=== PATIENT | female | born 1965 | race American Indian/Alaskan Native ===

== ENCOUNTER 2019-06-16 13:47 | Emergency (ER) | payer MEDICARE, OTHER ==
[2019-06-16 15:06] VITALS: BP 114/82
[2019-06-16] MEDS ORDERED: IBUPROFEN 800 MG TAB PO ONE (16:01)
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
== END 2019-06-16 18:00 | disposition home or self-care (01) ==
LOC: ED 13:47
DX: S16.1XXA Strain of muscle, fascia and tendon at neck level, initial encounter (principal); S39.012A Strain of muscle, fascia and tendon of lower back, initial encounter; F17.200 Nicotine dependence, unspecified, uncomplicated; Z79.1 Long term (current) use of non-steroidal anti-inflammatories (NSAID); Z79.899 Other long term (current) drug therapy; V47.6XXA Car passenger injured in collision with fixed or stationary object in traffic accident, initial encounter; Y93.89 Activity, other specified; Y92.410 Unspecified street and highway as the place of occurrence of the external cause; Y99.8 Other external cause status
CPT/HCPCS: 72040; 72100

== ENCOUNTER 2019-09-03 12:38 | Emergency (ER) | payer MEDICARE ==
[2019-09-03] MEDS ORDERED: ONDANSETRON 4 MG/2 ML INJ IV ONE (13:30)
[2019-09-03 14:27] LABS: Basophils # (Auto) 0.1 K/mm3 (0.0-0.1); Basophils % (Auto) 0.8 % (0.0-1.8); Eosinophils # (Auto) 0.3 K/mm3 (0.0-0.4); Eosinophils % (Auto) 2.3 % (0.0-4.3); Lymphocytes # (Auto) 2.6 K/mm3 (1.2-5.4); Lymphocytes % (Auto) 20.2 % (13.4-35.0); Monocytes % (Auto) 7.9 % (0.0-7.3)
[2019-09-03 14:38] LABS: Albumin 3.8 g/dL (3.9-5); BUN/Creatinine Ratio 19; Blood Urea Nitrogen 15 mg/dL (7-17); Hemolysis Index 8
[2019-09-03 14:42] LABS: Alanine Aminotransferase < 5 units/L (7-56); Hematocrit 40.5 % (30.3-42.9); Hemoglobin 14.1 gm/dl (10.1-14.3); Mean Corpuscular HGB Conc 35 % (30-34); Mean Corpuscular Volume 84 fl (79-97); Platelet Count 213 K/mm3 (140-440); Red Blood Count 4.83 M/mm3 (3.65-5.03); Red Cell Distribution Width 15.5 % (13.2-15.2)
--- NOTE | 2019-09-03 14:50 | Emergency Department Report ---
ED General Adult HPI - General Chief complaint: Nausea/Vomiting/Diarrhea Stated complaint: FACIAL SWELLING Time Seen by Provider: 09/03/19 13:15 Source: patient Mode of arrival: Wheelchair Limitations: No Limitations - History of Present Illness Initial comments: The patient presents to the emergency department the chief complaint of swelling to her face and her neck that started yesterday. Patient states she went to [facility] yesterday where they did a work-up and sent her home. Patient is concerned because the swelling has gotten worse. Patient was given a prescription for Ultram and ibuprofen which has not been helpful and control of her pain. Patient denies any pain with swallowing or talking. -: Sudden Location: face, neck Radiation: non-radiation Severity scale (0 -10): 5 Quality: aching Consistency: constant Improves with: none Worsens with: none Associated Symptoms: denies other symptoms Treatments Prior to Arrival: none - Related Data Previous Rx's Medication Instructions Recorded Last Taken Type Ibuprofen [Motrin 800 MG tab] 800 mg PO Q8HR PRN #21 tablet 06/16/19 Unknown Rx methOCARBAMOL [Robaxin TAB] 1,500 mg PO Q8H PRN #21 tablet 06/16/19 Unknown Rx Clindamycin [Clindamycin CAP] 150 mg PO Q8HR #63 capsule 09/03/19 Unknown Rx HYDROcodone/APAP 5-325 [Harriet 1 each PO Q6HR PRN #12 tablet 09/03/19 Unknown Rx 5/325] Penicillin V Potassium 500 mg PO TID #30 tablet 09/03/19 Unknown Rx Allergies Allergy/AdvReac Type Severity Reaction Status Date / Time No Known Allergies Allergy Verified 06/16/19 16:05 ED Review of Systems ROS: Stated complaint: FACIAL SWELLING Other details as noted in HPI Constitutional: denies: chills, fever Eyes: denies: eye pain, eye discharge, vision change ENT: other (Facial swelling). denies: ear pain, throat pain Respiratory: denies: cough, shortness of breath, wheezing Cardiovascular: denies: chest pain, palpitations Endocrine: no symptoms reported Gastrointestinal: denies: abdominal pain, nausea, diarrhea Genitourinary: denies: urgency, dysuria, discharge Musculoskeletal: denies: back pain, joint swelling, arthralgia Skin: denies: rash, lesions Neurological: denies: headache, weakness, paresthesias Psychiatric: denies: anxiety, depression Hematological/Lymphatic: denies: easy bleeding, easy bruising ED Past Medical Hx - Past Medical History Previous Medical History?: No - Surgical History Past Surgical History?: No - Social History Smoking Status: Current Every Day Smoker Substance Use Type: Alcohol, Marijuana - Medications Home Medications: Home Medications Medication Instructions Recorded Confirmed Last Taken Type Ibuprofen [Motrin 800 MG tab] 800 mg PO Q8HR PRN #21 tablet 06/16/19 Unknown Rx methOCARBAMOL [Robaxin TAB] 1,500 mg PO Q8H PRN #21 tablet 06/16/19 Unknown Rx Clindamycin [Clindamycin CAP] 150 mg PO Q8HR #63 capsule 09/03/19 Unknown Rx HYDROcodone/APAP 5-325 [Harriet 1 each PO Q6HR PRN #12 tablet 09/03/19 Unknown Rx 5/325] Penicillin V Potassium 500 mg PO TID #30 tablet 09/03/19 Unknown Rx ED Physical Exam - General Limitations: No Limitations General appearance: alert, in no apparent distress - Head Head exam: Present: atraumatic, normocephalic - Eye Eye exam: Present: normal appearance - ENT ENT exam: Present: mucous membranes moist, other (Multiple dental caries, submandibular lymphadenopathy, soft tissue swelling to the lower portion of the face) - Neck Neck exam: Present: normal inspection - Respiratory Respiratory exam: Present: normal lung sounds bilaterally. Absent: respiratory distress - Cardiovascular Cardiovascular Exam: Present: regular rate, normal rhythm. Absent: systolic murmur, diastolic murmur, rubs, gallop - GI/Abdominal GI/Abdominal exam: Present: soft, normal bowel sounds. Absent: distended, tenderness - Extremities Exam Extremities exam: Present: normal inspection - Back Exam Back exam: Present: normal inspection - Neurological Exam Neurological exam: Present: alert, oriented X3, CN II-XII intact. Absent: motor sensory deficit - Psychiatric Psychiatric exam: Present: normal affect, normal mood - Skin Skin exam: Present: warm, dry, intact, normal color. Absent: rash ED Course Vital Signs 09/03/19 09/03/19 13:01 15:05 Temperature 98.3 F Pulse Rate 83 52 L Respiratory 16 16 Rate Blood Pressure 154/94 Blood Pressure 135/73 [Left] O2 Sat by Pulse 95 98 Oximetry ED Medical Decision Making - Lab Data Result diagrams: 09/03/19 14:04 09/03/19 14:04 Lab Results 09/03/19 09/03/19 Range/Units 14:04 14:04 WBC 13.0 H (4.5-11.0) K/mm3 RBC 4.83 (3.65-5.03) M/mm3 Hgb 14.1 (10.1-14.3) gm/dl Hct 40.5 (30.3-42.9) % MCV 84 (79-97) fl MCH 29 (28-32) pg MCHC 35 H (30-34) % RDW 15.5 H (13.2-15.2) % Plt Count 213 (140-440) K/mm3 Lymph % (Auto) 20.2 (13.4-35.0) % [place] % (Auto) 7.9 H (0.0-7.3) % Eos % (Auto) 2.3 (0.0-4.3) % Baso % (Auto) 0.8 (0.0-1.8) % Lymph # 2.6 (1.2-5.4) K/mm3 [place] # 1.0 H (0.0-0.8) K/mm3 Eos # 0.3 (0.0-0.4) K/mm3 Baso # 0.1 (0.0-0.1) K/mm3 Seg Neutrophils % 68.8 (40.0-70.0) % Seg Neutrophils # 9.0 H (1.8-7.7) K/mm3 Sodium 142 (137-145) mmol/L Potassium 4.5 (3.6-5.0) mmol/L Chloride 101.8 (98-107) mmol/L Carbon Dioxide 26 (22-30) mmol/L Anion Gap 19 mmol/L BUN 15 (7-17) mg/dL Creatinine 0.8 (0.7-1.2) mg/dL Estimated GFR > 60 ml/min BUN/Creatinine Ratio 19 % Glucose 93 (65-100) mg/dL Calcium 9.0 (8.4-10.2) mg/dL Total Bilirubin 0.20 (0.1-1.2) mg/dL AST 12 (5-40) units/L ALT < 5 L (7-56) units/L Alkaline Phosphatase 87 (35-129) units/L Total Protein 7.1 (6.3-8.2) g/dL Albumin 3.8 L (3.9-5) g/dL Albumin/Globulin Ratio 1.2 % - Radiology Data Radiology results: report reviewed [facility] [address] [place] [address] Cat Scan Report Signed Patient: RADHA STAHL MR#: [id number] : 1965 Acct:[id number] Age/Sex: 53 / F ADM Date: 09/03/19 Loc: ED Attending Dr: Ordering Physician: KAREEN CURRAN MD Date of Service: 09/03/19 Procedure(s): CT neck w con Accession Number(s): [id number] cc: KAREEN CURRAN MD CT NECK WITH INTRAVENOUS CONTRAST AND MULTIPLANAR RECONSTRUCTION CLINICAL HISTORY: Neck swelling. TECHNIQUE: 3.75 mm thick contiguous axial scans were obtained from the skull base down to the aortic arch during intravenous contrast administration. In addition to evaluation of axial source images sagittal and coronal multiplanar reconstructions were produced and reviewed for this report. Contrast dose report: Omnipaque 300: 100 mL administered intravenously. FINDINGS: Oral cavity and mandible: Periapical lucency is observed at teeth #26 and 27 on the inferior alveolar ridge of the mandible to the right of the midline. This is consistent with periapical abscess. There is a adjacent subperiosteal abscess along the buccal surface of the mandible which measures about 16 x 6 mm in transverse dimension by 14 mm in superior-inferior dimension. There is adjacent infiltration of the soft tissues of the left. Findings indicate the presence of a subperiosteal and echogenic abscess adjacent cellulitis. Multiple dental caries are observed elsewhere. Reactive lymph nodes are identified in level 1A and level 1B. There is no indication of pathological lymphadenopathy. No abnormalities are seen along the course of the airway. Nasopharynx, oropharynx, hypopharynx, larynx and visualized portions of the subglottic airway all have an unremarkable appearance. There is no indication of cervical lymphadenopathy. The parotid and submandibular salivary glands have a normal appearance. Evaluation of the nasal cavity reveals no abnormality. The paranasal sinuses are free from inflammatory mucosal disease. Evaluation of the orbits reveals no abnormality. The thyroid gland is normal in size. A 6 mm diameter hypodense lesion is present along the anterior surface of the midpole of the right lobe of the thyroid gland. This may represent a small thyroid nodule or cyst. Based on size criteria no further evaluation is required. Evaluation of the cervical spi ne reveals no significant abnormality. Normal alignment is maintained. No significant degenerative changes are identified. Evaluation of the lung apices reveals no abnormality. There is no indication of lung nodule or infiltrate. The visualized portions of the superior mediastinum have an unremarkable appearance. Enhancement of normal vascular structures is demonstrated. No areas of abnormal contrast enhancement are identified. IMPRESSION: 1. There is evidence of a periapical abscess at the roots of teeth #26 and 27 associated with an odontogenic subperiosteal abscess along the buccal surface of the mandible. There is adjacent cellulitis. Incidental thyroid nodule measuring 0.6 cm located in mid pole of the right lobe of the thyroid gland. See below for follow-up recommendation. Nonpalpable nodules detected on US or other anatomic imaging studies are termed incidentally discovered nodules or incidentalomas. Nonpalpable nodules have the same risk of malignancy as palpable nodules with t he same size. Generally, only nodules >1 cm should be evaluated, since they have a greater potential to be clinically significant cancers. (WAYNE, 2009). Follow up for incidental thyroid nodules <1 cm is not recommended. In patients 35 years with an incidental thyroid nodule detected on CT, MRI, or extrathyroidal ultrasound, dedicated thyroid ultrasound is recommended if the nodule is 1.5 cm, has no suspicious imaging features, and if the patient has normal life expectancy. All CT imaging studies performed at this facility utilize dose modulation, iterative reconstruction or weight based dosing, if appropriate, to obtain the lowest achievable radiation dose. Signer Name: Meek Gonzalez MD Signed : 09/03/2019 3:36 PM Workstation Name: [id number] Transcribed By: Dictated By: Meek Gonzalez MD Electronically Authenticated By: Meek Gonzalez MD Signed Date/Time: 09/03/19 1536 DD/ 1528 TD/TT: - Medical Decision Making Results discussed with patient Critical care attestation.: If time is entered above; I have spent that time in minutes in the direct care of this critically ill patient, excluding procedure time. ED Disposition Clinical Impression: Cellulitis of intraoral region, Dental abscess, Lymphadenopathy, Periapical abscess Disposition: DC- TO HOME OR SELFCARE Is pt being admited?: No Does the pt Need Aspirin: No Condition: Stable Instructions: Dental Abscess (ED), Cellulitis (ED) Additional Instructions: return if worse or difficulty breathing Prescriptions: Clindamycin [Clindamycin CAP] 150 mg PO Q8HR #63 capsule HYDROcodone/APAP 5-325 [Harriet 5/325] 1 each PO Q6HR PRN #12 tablet PRN Reason: Pain Penicillin V Potassium 500 mg PO TID #30 tablet Referrals: VENUS YOO MD [Primary Care Provider] - 3-5 Days [facility] [Outside] - 3-5 Days Time of Disposition: 15:45
[2019-09-03 15:07] VITALS: BP 135/73
--- NOTE | 2019-09-03 15:41 | Cat Scan Report ---
CT NECK WITH INTRAVENOUS CONTRAST AND MULTIPLANAR RECONSTRUCTION CLINICAL HISTORY: Neck swelling. TECHNIQUE: 3.75 mm thick contiguous axial scans were obtained from the skull base down to the aortic arch during intravenous contrast administration. In addition to evaluation of axial source images sagittal and c oronal multiplanar reconstructions were produced and reviewed for this report. Contrast dose report: Omnipaque 300: 100 mL administered intravenously. FINDINGS: Oral cavity and mandible: Periapical lucency is observed at teeth #26 and 27 on the inferior alveolar ridge of the mandible to the right of the midline. This is consistent with periapical abscess. There is a adjacent subperioste al abscess along the buccal surface of the mandible which measures about 16 x 6 mm in transverse dime nsion by 14 mm in superior-inferior dimension. There is adjacent infiltration of the soft tissues of the left. Findings indicate the presence of a subperiosteal and echogenic abscess adjacent cellulitis . Multiple dental caries are observed elsewhere. Reactive lymph nodes are identified in level 1A and level 1B. There is no indication of pathological lymphadenopathy. No abnormalities are seen along the course of the airway. Nasopharynx, oropharynx, hypopharynx, laryn x and visualized portions of the subglottic airway all have an unremarkable appearance. There is no indication of cervical lymphadenopathy. The parotid and submandibular salivary glands have a normal appearance. Evaluation of the nasal cavity reveals no abnormality. The paranasal sinuses are free from inflammato ry mucosal disease. Evaluation of the orbits reveals no abnormality. The thyroid gland is normal in size. A 6 mm diameter hypodense lesion is present along the anterior s urface of the midpole of the right lobe of the thyroid gland. This may represent a small thyroid nodu le or cyst. Based on size criteria no further evaluation is required. Evaluation of the cervical spin e reveals no significant abnormality. Normal alignment is maintained. No significant degenerative ramana nges are identified. Evaluation of the lung apices reveals no abnormality. There is no indication of lung nodule or infilt rate. The visualized portions of the superior mediastinum have an unremarkable appearance. Enhancement of normal vascular structures is demonstrated. No areas of abnormal contrast enhancement are identified. IMPRESSION: 1. There is evidence of a periapical abscess at the roots of teeth #26 and 27 associated with an odon togenic subperiosteal abscess along the buccal surface of the mandible. There is adjacent cellulitis. Incidental thyroid nodule measuring 0.6 cm located in mid pole of the right lobe of the thyroid gland . See below for follow-up recommendation. Nonpalpable nodules detected on US or other anatomic imaging studies are termed incidentally discover ed nodules or incidentalomas. Nonpalpable nodules have the same risk of malignancy as palpable nodule s with the same size. Generally, only nodules >1 cm should be evaluated, since they have a greater po tential to be clinically significant cancers. (WAYNE, 2009). Follow up for incidental thyroid nodules <1 cm is not recommended. In patients 35 years with an incidental thyroid nodule detected on CT, MRI, or extrathyroidal ultraso und, dedicated thyroid ultrasound is recommended if the nodule is 1.5 cm, has no suspicious imaging f eatures, and if the patient has normal life expectancy. All CT imaging studies performed at this facility utilize dose modulation, iterative reconstruction o r weight based dosing, if appropriate, to obtain the lowest achievable radiation dose. Signer Name: Meek Gonzalez MD Signed: 09/03/2019 3:36 PM Workstation Name: [id number]
== END 2019-09-03 16:28 | disposition home or self-care (01) ==
LOC: ED 12:38
DX: K12.2 Cellulitis and abscess of mouth (principal); K04.7 Periapical abscess without sinus; R59.1 Generalized enlarged lymph nodes; F17.200 Nicotine dependence, unspecified, uncomplicated; F12.90 Cannabis use, unspecified, uncomplicated; Z79.899 Other long term (current) drug therapy
CPT/HCPCS: 36415; 70491; 80053; 85025; 96374; 99284; J2405; Q9967

== ENCOUNTER 2019-09-03 23:59 | Emergency (ER) | payer MEDICARE ==
[2019-09-04] MEDS ORDERED: methylPREDNISolone Sod Succinate 125 MG/2 ML INJ IV ONE (01:24)
[2019-09-04 01:52] LABS: Basophils # (Auto) 0.1 K/mm3 (0.0-0.1); Basophils % (Auto) 0.9 % (0.0-1.8); Eosinophils # (Auto) 0.1 K/mm3 (0.0-0.4); Eosinophils % (Auto) 0.5 % (0.0-4.3); Hematocrit 39.4 % (30.3-42.9); Hemoglobin 13.8 gm/dl (10.1-14.3); Lymphocytes # (Auto) 2.3 K/mm3 (1.2-5.4); Lymphocytes % (Auto) 20.5 % (13.4-35.0); Mean Corpuscular HGB Conc 35 % (30-34); Mean Corpuscular Volume 84 fl (79-97); Monocytes # (Auto) 0.8 K/mm3 (0.0-0.8); Monocytes % (Auto) 7.5 % (0.0-7.3); Platelet Count 205 K/mm3 (140-440); Red Blood Count 4.69 M/mm3 (3.65-5.03); Red Cell Distribution Width 15.4 % (13.2-15.2)
--- NOTE | 2019-09-04 02:10 | Emergency Department Report ---
HPI - General Chief Complaint: Weakness Time Seen by Provider: 09/04/19 01:07 - HPI HPI: 53-year-old -[place] female presents to the emergency department from home with complaint of swelling of her face and neck. The patient was seen here for the same symptoms earlier today and recently was seen at [facility] as well. Initially the patient was seen at [place], about 48 hours ago, when the patient thought she had some "twisting of my mouth." She says that she had a stroke work-up there and was discharged home after an overnight stay. Patient was seen by my colleague here earlier today for the same facial swelling symptoms. Her labs were mostly unremarkable. She had a CT scan of the neck with IV contrast that shows: "There is evidence of a periapical abscess at the roots of teeth #26 and 27 associated with an odontogenic subperiosteal abscess along the buccal surface of the mandible. There is adjacent cellulitis." She was discharged home with a prescription for pain medication, penicillin VK and clindamycin. The patient took 1 dose of the penicillin VK. She went to sleep this evening and says she woke up with worsening of the swelling and therefore came back for further evaluation. She denies any fever, shortness of breath, difficulty swallowing. She otherwise denies any past medical history. She is a tobacco smoker but denies any illicit drug use. ED Past Medical Hx - Past Medical History Previous Medical History?: No - Surgical History Past Surgical History?: No - Social History Smoking Status: Never Smoker Substance Use Type: None - Medications Home Medications: Home Medications Medication Instructions Recorded Confirmed Last Taken Type Ibuprofen [Motrin 800 MG tab] 800 mg PO Q8HR PRN #21 tablet 06/16/19 Unknown Rx methOCARBAMOL [Robaxin TAB] 1,500 mg PO Q8H PRN #21 tablet 06/16/19 Unknown Rx Clindamycin [Clindamycin CAP] 150 mg PO Q8HR #63 capsule 09/03/19 Unknown Rx HYDROcodone/APAP 5-325 [[place] 1 each PO Q6HR PRN #12 tablet 09/03/19 Unknown Rx 5/325] Penicillin V Potassium 500 mg PO TID #30 tablet 09/03/19 Unknown Rx Albuterol INH(or & Nicu Only) 2 puff IH QID PRN #8.5 gram 09/04/19 Unknown Rx [ProAir HFA Inhaler] ED Review of Systems ROS: Stated complaint: GENERAL WEAKNESS Other details as noted in HPI Comment: All other systems reviewed and negative Constitutional: denies: chills, fever Eyes: denies: eye pain, vision change ENT: dental pain. denies: throat pain Respiratory: denies: cough, shortness of breath Cardiovascular: denies: chest pain, palpitations Gastrointestinal: denies: abdominal pain, vomiting Musculoskeletal: denies: back pain, arthralgia Neurological: denies: headache, weakness Physical Exam - Physical Exam Vital Signs: Vital Signs 09/04/19 09/04/19 00:14 01:31 Temperature 98.4 F Pulse Rate 58 L 65 Respiratory 16 20 Rate Blood Pressure 125/77 136/88 [Right] O2 Sat by Pulse 95 97 Oximetry Physical Exam: GENERAL: The patient is well-developed well-nourished. HENT: Normocephalic. Atraumatic. Patient has moist mucous membranes. Multiple dental caries. There is some tenderness palpation to the right lower gumline where the patient appears to have dental caries and is the region of her periapical abscesses. There is some lower facial swelling but no erythema. No drooling or trismus. EYES: Extraocular motions are intact. NECK: Supple. Trachea is midline. Bilateral submandibular lymphadenopathy. CHEST/LUNGS: Clear to auscultation. There is no respiratory distress noted. HEART/CARDIOVASCULAR: Regular. There is no tachycardia. ABDOMEN: Abdomen is soft, nontender. Patient has normal bowel sounds. There is no abdominal distention. SKIN: Skin is warm and dry. NEURO: The patient is awake, alert, and oriented. The patient is cooperative. The patient has no focal neurologic deficits. Normal speech. MUSCULOSKELETAL: There is no tenderness or deformity. There is no evidence of acute injury. ED Course Vital Signs 09/04/19 09/04/19 00:14 01:31 Temperature 98.4 F Pulse Rate 58 L 65 Respiratory 16 20 Rate Blood Pressure 125/77 136/88 [Right] O2 Sat by Pulse 95 97 Oximetry ED Medical Decision Making - Lab Data Result diagrams: 09/04/19 01:36 09/04/19 01:36 - EKG Data -: EKG Interpreted by Co EKG shows normal: sinus rhythm, axis (Left axis deviation), intervals, QRS complexes (Q waves to the inferior leads), ST-T waves Rate: normal - EKG Data When compared to previous EKG there are: previous EKG unavailable Interpretation: other (Sinus rhythm, left axis deviation, rate of 95 bpm, Q waves to the inferior leads) - Radiology Data Radiology results: image reviewed interpreted by me: Chest x-ray does not show any acute process. There are no pleural effusions, obvious pneumonia and there is no pneumothorax. - Medical Decision Making This patient returns to the emergency department with the concern of some worsening of the lower facial swelling and/or neck swelling that initially brought her in earlier in the afternoon. On examination the patient has multiple dental caries, some soft tissue swelling of the lower face and submandibular lymphadenopathy. There is no drooling or trismus. The patient does not appear in any respiratory or acute distress. The CT scan from earlier in the day was reviewed that shows periapical abscess and intraoral cellulitis. Patient's labs were mostly unremarkable including CBC, metabolic panel, TSH. A chest x-ray was done that does not show any pneumonia, pleural effusions, pneumothorax, focal consolidation, or any other acute process. The patient was reevaluated multiple times over multiple hours and appears improved. The swelling has gone down some. She is maintaining her airway. The patient still has the prescriptions for clindamycin, penicillin VK and pain medication. We discussed avoiding any further tobacco use. She understands the importance of following up with primary care and a dentist. The patient will return to the emergency department immediately with any worsening of her symptoms or with any acute distress. Critical Care Time: No Critical care attestation.: If time is entered above; I have spent that time in minutes in the direct care of this critically ill patient, excluding procedure time. ED Disposition Clinical Impression: Cellulitis of intraoral region, Dental abscess, Periapical abscess Disposition: DC- TO HOME OR SELFCARE Is pt being admited?: No Condition: Stable Instructions: Dental Abscess (ED), Toothache (ED) Additional Instructions: Please follow-up with a primary care physician. Please follow-up with a dentist as soon as possible. Take the antibiotics as prescribed. Return to the emergency department immediately for any worsening of your symptoms, swelling of your tongue or throat, difficulty swallowing, shortness of breath, or with any acute distress. Prescriptions: Albuterol INH(or & Nicu Only) [ProAir HFA Inhaler] 2 puff IH QID PRN #8.5 gram PRN Reason: Shortness Of Breath Referrals: [facility] [Outside] - 2-3 Days PRIMARY CARE, [Primary Care Provider] - 2-3 Days Time of Disposition: 05:32
[2019-09-04] MEDS ORDERED: SODIUM CHLORIDE 0.9% 1000 ML 1,000 ML IV ONE (02:18)
[2019-09-04 02:27] LABS: BUN/Creatinine Ratio 20; Blood Urea Nitrogen 12 mg/dL (7-17); Calcium 9.4 mg/dL (8.4-10.2)
--- NOTE | 2019-09-04 03:19 | XRay Report ---
CHEST 1 VIEW INDICATION / CLINICAL INFORMATION: weakness. COMPARISON: None available. FINDINGS: SUPPORT DEVICES: None. HEART / MEDIASTINUM: No significant abnormality. LUNGS / PLEURA: No significant pulmonary or pleural abnormality. No pneumothorax. ADDITIONAL FINDINGS: No significant additional findings. IMPRESSION: 1. No acute findings. Signer Name: Herrera Grier MD Signed: 09/04/2019 3:14 AM Workstation Name: [id number]
[2019-09-04] MEDS ORDERED: IPRATROPIUM/ALBUTEROL SULFATE 3 ML AMPUL.NEB IH ONE (05:46)
[2019-09-04 05:53] VITALS: BP 127/67
== END 2019-09-04 07:00 | disposition home or self-care (01) ==
LOC: ED 23:59
DX: K04.7 Periapical abscess without sinus (principal); Z79.1 Long term (current) use of non-steroidal anti-inflammatories (NSAID); Z79.2 Long term (current) use of antibiotics; Z79.899 Other long term (current) drug therapy
CPT/HCPCS: 36415; 71045; 80048; 84443; 85025; 94640; 96365; 96366; 96375; 99284; J2930; J7030; 94644

== ENCOUNTER 2019-09-04 08:19 | Emergency (ER) | payer MEDICARE ==
[2019-09-04 08:24] VITALS: BP 117/72
--- NOTE | 2019-09-04 08:53 | Emergency Department Report ---
HPI - General Chief Complaint: Allergic Reaction Time Seen by Provider: 09/04/19 08:41 ED Past Medical Hx - Past Medical History Previous Medical History?: No - Surgical History Past Surgical History?: No - Social History Smoking Status: Never Smoker - Medications Home Medications: Home Medications Medication Instructions Recorded Confirmed Last Taken Type Ibuprofen [Motrin 800 MG tab] 800 mg PO Q8HR PRN #21 tablet 06/16/19 Unknown Rx methOCARBAMOL [Robaxin TAB] 1,500 mg PO Q8H PRN #21 tablet 06/16/19 Unknown Rx Clindamycin [Clindamycin CAP] 150 mg PO Q8HR #63 capsule 09/03/19 Unknown Rx HYDROcodone/APAP 5-325 [[place] 1 each PO Q6HR PRN #12 tablet 09/03/19 Unknown Rx 5/325] Penicillin V Potassium 500 mg PO TID #30 tablet 09/03/19 Unknown Rx Albuterol INH(or & Nicu Only) 2 puff IH QID PRN #8.5 gram 09/04/19 Unknown Rx [ProAir HFA Inhaler] ED Review of Systems ROS: Stated complaint: ALLERGIC REACTION Other details as noted in HPI Physical Exam - Physical Exam Vital Signs: Vital Signs 09/04/19 08:21 Temperature 98.3 F Pulse Rate 78 Respiratory 18 Rate Blood Pressure 117/72 O2 Sat by Pulse 95 Oximetry ED Course Vital Signs 09/04/19 08:21 Temperature 98.3 F Pulse Rate 78 Respiratory 18 Rate Blood Pressure 117/72 O2 Sat by Pulse 95 Oximetry Critical care attestation.: If time is entered above; I have spent that time in minutes in the direct care of this critically ill patient, excluding procedure time. ED Disposition Condition: Stable
--- NOTE | 2019-09-04 09:27 | Emergency Department Report ---
Chief Complaint: Allergic Reaction Stated Complaint: ALLERGIC REACTION Time Seen by Provider: 09/04/19 08:41 - HPI History of Present Illness: 53-year-old -[place] female patient presents with complaints of worsening swelling of the face since her discharge early this morning. Patient was seen here in the ED twice yesterday and discharged earlier this morning. She was diagnosed with a subperiosteal dental abscess, treated with IV antibiotics, and given a prescription for clindamycin and penicillin along with hydrocodone for pain control. Patient is reporting since being discharged early this morning that her swelling and pain have worsened. She reports that she has some difficulty swallowing but denies any trouble opening and closing her jaw or trouble with speech. Patient also denies any fever/chills/sweats. - Exam Vital Signs: Vital Signs 09/04/19 08:21 Temperature 98.3 F Pulse Rate 78 Respiratory 18 Rate Blood Pressure 117/72 O2 Sat by Pulse 95 Oximetry MSE screening note: Focused history and physical exam performed. Due to findings the following was ordered: ED Medical Decision Making - Radiology Data CT NECK WITH INTRAVENOUS CONTRAST AND MULTIPLANAR RECONSTRUCTION CLINICAL HISTORY: Neck swelling. TECHNIQUE: 3.75 mm thick contiguous axial scans were obtained from the skull base down to the aortic arch during intravenous contrast administration. In addition to evaluation of axial source images sagittal and coronal multiplanar reconstructions were produced and reviewed for this report. Contrast dose report: Omnipaque 300: 100 mL administered intravenously. FINDINGS: Oral cavity and mandible: Periapical lucency is observed at teeth #26 and 27 on the inferior alveolar ridge of the mandible to the right of the midline. This is consistent with periapical abscess. There is a adjacent subperiosteal abscess along the buccal surface of the mandible which measures about 16 x 6 mm in transverse dimension by 14 mm in superior-inferior dimension. There is adjacent infiltration of the soft tissues of the left. Findings indicate the presence of a subperiosteal and echogenic abscess adjacent cellulitis. Multiple dental caries are observed elsewhere. Reactive lymph nodes are identified in level 1A and level 1B. There is no indication of pathological lymphadenopathy. No abnormalities are seen along the course of the airway. Nasopharynx, oropharynx, hypopharynx, larynx and visualized portions of the subglottic airway all have an unremarkable appearance. There is no indication of cervical lymphadenopathy. The parotid and submandibular salivary glands have a normal appearance. Evaluation of the nasal cavity reveals no abnormality. The paranasal sinuses are free from inflammatory mucosal disease. Evaluation of the orbits reveals no abnormality. The thyroid gland is normal in size. A 6 mm diameter hypodense lesion is present along the anterior surface of the midpole of the right lobe of the thyroid gland. This may represent a small thyroid nodule or cyst. Based on size criteria no further evaluation is required. Evaluation of the cervical spine reveals no significant abnormality. Normal alignment is maintained. No significant degenerative changes are identified. Evaluation of the lung apices reveals no abnormality. There is no indication of lung nodule or infiltrate. The visualized portions of the superior mediastinum have an unremarkable appearance. Enhancement of normal vascular structures is demonstrated. No areas of abnormal contrast enhancement are identified. IMPRESSION: 1. There is evidence of a periapical abscess at the roots of teeth #26 and 27 associated with an odontogenic subperiosteal abscess along the buccal surface of the mandible. There is adjacent cellulitis. Incidental thyroid nodule measuring 0.6 cm located in mid pole of the right lobe of the thyroid gland. See below for follow-up recommendation. Nonpalpable nodules detected on US or other anatomic imaging studies are termed incidentally discovered nodules or incidentalomas. Nonpalpable nodules have the same risk of malignancy as palpable nodules with the same size. Generally, only nodules >1 cm should be evaluated, since they have a greater potential to be clinically significant cancers. (WAYNE, 2009). Follow up for incidental thyroid nodules <1 cm is not recommended. In patients 35 years with an incidental thyroid nodule detected on CT, MRI, or extrathyroidal ultrasound, dedicated thyroid ultrasound is recommended if the nodule is 1.5 cm, has no suspicious imaging features, and if the patient has normal life expectancy. All CT imaging studies performed at this facility utilize dose modulation, iterative reconstruction or weight based dosing, if appropriate, to obtain the lowest achievable radiation dose. - Medical Decision Making Patient here for the third time within 24 hours for facial swelling. She was discharged this morning. Patient has been diagnosed with periapical abscess and a subperiosteal abscess via CT scan. WBCs at initial visit were 13, and decreased to 11.1 upon repeat during her second visit. Patient was treated with IV antibiotics and prescribed clindamycin and penicillin. Patient's vitals are normal and she is afebrile. She has no trismus on exam and her malum potty score = 2. There is also no visual facial cellulitis noted on exam. Discussed patient with Dr. Villatoro who does not recommend any further ER intervention and recommends patient be discharged home and follow-up with dental specialist and primary care provider as previously discussed. Discussed strict return precautions in great detail with patient who verbalizes understanding. ED Disposition for MSE Clinical Impression: Facial swelling Disposition: Z- MED SCREENING EXAM-LEFT Is pt being admited?: No Condition: Stable Instructions: Dental Abscess (ED) Additional Instructions: Please follow-up with the dental specialist and primary care provider as previously discussed. If your facial swelling worsens or you develop a fever, difficulty swallowing, or difficulty opening your jaw or any new concerning symptoms, seek immediate emergency care. ED Review of Systems ROS: Stated complaint: ALLERGIC REACTION Other details as noted in HPI Constitutional: denies: chills, fever Eyes: denies: eye pain, vision change ENT: dental pain. denies: ear pain, throat pain Respiratory: denies: cough, shortness of breath Cardiovascular: denies: chest pain Gastrointestinal: denies: nausea, vomiting Musculoskeletal: denies: myalgia Skin: denies: rash, lesions, change in color ED Physical Exam - General Limitations: No Limitations General appearance: alert, in no apparent distress, other (Patient is actively talking on the phone without difficulty) - Eye Eye exam: Present: normal appearance. Absent: scleral icterus - Expanded ENT Exam Expanded Mouth exam: Absent: drooling, trismus, muffled voice Teeth exam: Present: dental caries (Multiple), dental tenderness # Throat exam: Positive: normal inspection, other (Malum potty score = 2). Negative: tonsillar erythema, tonsillomegaly, tonsillar exudate, R peritonsillar mass, L peritonsillar mass - Neck Neck exam: Present: tenderness, full ROM, lymphadenopathy, other (No facial or neck erythema noted) - Respiratory Respiratory exam: Present: normal lung sounds bilaterally. Absent: respiratory distress - Cardiovascular Cardiovascular Exam: Present: regular rate, normal rhythm - Neurological Exam Neurological exam: Present: alert, oriented X3 - Psychiatric Psychiatric exam: Present: normal affect, normal mood - Skin Skin exam: Present: warm, dry, intact, normal color. Absent: rash, cyanosis, erythema
== END 2019-09-04 09:50 | disposition left against medical advice (07) ==
LOC: ED 08:19
DX: R22.0 Localized swelling, mass and lump, head (principal); R13.10 Dysphagia, unspecified
CPT/HCPCS: 99281